=== PATIENT | female | born 1945 | race Caucasian/White ===

== ENCOUNTER → 2017-01-04 | Outpatient (CLI) | payer OTHER ==
[2017-01-04 09:13] LABS: HEMOGLOBIN A1C 7.35 % (4.2-6.0); MEAN BLOOD GLUCOSE (CALC) 158.755 mg/dL
[2017-01-04 09:32] LABS: BUN/CREATININE RATIO 24.28 (6-20); CALCIUM 10.4 mg/dL (8.7-10.7); CREATININE 0.7 mg/dL (0.50-1.20); POTASSIUM 4.2 meq/L (3.8-5.2)
[2017-01-04 09:35] LABS: CREATININE, URINE 32.1 MG/DL (15-500)
--- NOTE | 2017-01-04 10:08 | DI ---
CT BONE DENSITOMETRY OF THE SPINE AND HIP, 01/04/2017 8:55 AM : Clinical History: Asymptomatic post menopausal patient. Screening. Previous Exam: November 14, [address] (QCT) Bone Mineral Densitometry: The [place] scans are normal. Low dose scans are obtained of the lumbar spine and sampling is obtaine d through the midbodies of L1 and L2. The average volumetric bone mineral density (BMD) of the lumbar spine is 125.8 mg/cm3. This value corresponds to a volumetric T-score of -1.6 and Z-score of 1.6 as assessed by this BMD software. Volumetric 3D QCT and areal DEXA T-scores and Z-scores are not directl y equivalent. Using the [employer]'s (ACR) volumetric QCT trabecular spine BMD con version table that is closely equivalent to the areal WHO diagnostic categories, this patient falls i nto the category of normal bone mineral density. CT X-Ray Absorptiometry (CTXA) Hip Bone Mineral Densitometry: Low dose scans are obtained through the hips for assessment of bone mineral density (BMD) and T-score s and Z-scores of the left hip. Total hip BMD: 0.80 mg/cm2 T-score: -1.0 Z-score: Femoral neck BMD: 0.626 mg/cm2 T-score: -1.5 Z-score: Note: T-scores of the spine and hip exhibit discordant readings approximately 40% of the time in eval uated patients. Changes in BMD determined either by volumetric QCT or areal DEXA are more reliable in assessment of change in a patient's BMD status rather than changes in T-scores. The CTXA hip CT bone mineral density measurements and the resultant T-scores and Z-scores are exact hip DEXA scan equival ents. The femoral neck T-score can be used in the WHO's FRAX program for assessing an untreated patie nt's 10 year fracture risk. Visualized intra-abdominal structures demonstrate multiple stones within the gallbladder. READING: Normal bone mineral density of the lumbar spine with osteopenia of the left hip. Cholelithiasis.
== END ==
LOC: CT 08:44
PROVIDERS: ATTEND Internal Medicine
DX: E11.9 Type 2 diabetes mellitus without complications (principal); E78.5 Hyperlipidemia, unspecified; Z78.0 Asymptomatic menopausal state; Z13.820 Encounter for screening for osteoporosis
CPT/HCPCS: 36415; 77078; 80048; 82043; 83036

== ENCOUNTER → 2017-07-08 | Outpatient (CLI) | payer OTHER ==
[2017-07-08 07:39] LABS: HEMOGLOBIN A1C 7.58 % (4.2-6.0)
[2017-07-08 07:40] LABS: BUN/CREATININE RATIO 28.57 (6-20); CALCIUM 11.1 mg/dL (8.7-10.7); CHOL/HDL RATIO 3.38 RATIO (0-4.0); LDL CHOLESTEROL,CALCULATED 81.4 mg/dL; SERUM ALBUMIN 4.4 g/dL (3.5-4.8)
[2017-07-08 08:37] LABS: CREATININE, URINE 23.8 MG/DL (15-500)
== END ==
LOC: LAB 06:59
PROVIDERS: ATTEND Internal Medicine
DX: E11.9 Type 2 diabetes mellitus without complications (principal); E78.5 Hyperlipidemia, unspecified; M81.0 Age-related osteoporosis without current pathological fracture; M85.80 Other specified disorders of bone density and structure, unspecified site
CPT/HCPCS: 36415; 80053; 80061; 82043; 82550; 83036